=== PATIENT | male | born 1985 | race Caucasian/White ===

== ENCOUNTER 2018-07-25 11:56 | Emergency (ER) | payer OTHER ==
[~2018-07-25] VITALS: Ht 175.3 cm; Wt 79.4 kg
[2018-07-25] MEDS ORDERED: PROZAC10 MG PO (12:07)
[2018-07-25] MEDS ORDERED: DEPAKOTE 250MG250 M1 PO (12:07)
[2018-07-25] MEDS ORDERED: SEROQUEL 25 MG25 M1 PO (12:07)
[2018-07-25] MEDS ORDERED: AMITRIPTYLINE H10 M3 PO (12:07)
[2018-07-25] MEDS ORDERED: BIKTARVY 50-201 EACH PO (12:07)
[2018-07-25 12:49] LABS: INFLUENZA A ANTIGEN None Detected (None Detect); INFLUENZA B ANTIGEN None Detected (None Detect)
[2018-07-25] MEDS ORDERED: ACETAMINOPHEN-1 EAC1 PO (12:59)
[2018-07-25] MEDS ORDERED: ZPAK PO (12:59)
[2018-07-25] MEDS ORDERED: PROMETHAZINE V473 ML PO (13:04)
[2018-07-25 13:14] VITALS: BP 134/75
== END 2018-07-25 13:16 | disposition home or self-care (01) ==
LOC: M.ERS 11:56
PROVIDERS: Physician Assistant
DX: J20.9 Acute bronchitis, unspecified (principal); F17.210 Nicotine dependence, cigarettes, uncomplicated

== ENCOUNTER 2018-07-30 13:12 | Emergency (ER) | payer OTHER ==
[~2018-07-30] VITALS: Ht 175.3 cm; Wt 77.6 kg
[~2018-07-30 13:12] MED LIST: ACETAMINOPHEN-1 EAC1 PO; AMITRIPTYLINE H10 M3 PO; BIKTARVY 50-201 EACH PO; DEPAKOTE 250MG250 M1 PO; PROMETHAZINE V473 ML PO; PROZAC10 MG PO; SEROQUEL 25 MG25 M1 PO; ZPAK PO
[2018-07-30] MEDS ORDERED: PREDNISONE 20 M20 M1 PO (14:05)
[2018-07-30] MEDS ORDERED: TESSALON PERLE100 MG PO (14:06)
[2018-07-30 14:16] VITALS: BP 129/82
== END 2018-07-30 14:16 | disposition home or self-care (01) ==
LOC: M.ERS 13:12
DX: J20.9 Acute bronchitis, unspecified (principal); F17.210 Nicotine dependence, cigarettes, uncomplicated

== ENCOUNTER 2018-09-20 23:46 | Emergency (ER) | payer OTHER ==
[~2018-09-20] VITALS: Ht 175.3 cm; Wt 79.4 kg
[~2018-09-20 23:46] MED LIST changes: +PREDNISONE 20 M20 M1 PO; +TESSALON PERLE100 MG PO
[2018-09-21] MEDS ORDERED: SEROQUEL300 MG PO (00:02)
[2018-09-21] MEDS ORDERED: NORCO 5-325 TA1 EACH PO (00:26)
[2018-09-21] MEDS ORDERED: NABUMETONE 750750 M1 PO (00:26)
[2018-09-21 00:37] VITALS: BP 136/80
== END 2018-09-21 00:37 | disposition home or self-care (01) ==
LOC: M.ERS 23:46
DX: G89.29 Other chronic pain (principal); M54.5 Low back pain; F31.9 Bipolar disorder, unspecified; F41.9 Anxiety disorder, unspecified; M46.90 Unspecified inflammatory spondylopathy, site unspecified

== ENCOUNTER 2018-09-28 10:50 | Emergency (ER) | payer OTHER ==
[~2018-09-28] VITALS: Ht 175.3 cm; Wt 79.4 kg
[~2018-09-28 10:50] MED LIST changes: +NABUMETONE 750750 M1 PO; +NORCO 5-325 TA1 EACH PO; +SEROQUEL300 MG PO
[2018-09-28] MEDS ORDERED: NORCO 5-325 TA1 EACH PO (11:30)
[2018-09-28] MEDS ORDERED: FLEXERIL PO (11:30)
[2018-09-28 11:44] VITALS: BP 142/70
== END 2018-09-28 11:45 | disposition home or self-care (01) ==
LOC: M.ERS 10:50
DX: M54.5 Low back pain (principal); F31.9 Bipolar disorder, unspecified; F17.200 Nicotine dependence, unspecified, uncomplicated

== ENCOUNTER 2018-10-14 23:45 | Emergency (ER) | payer OTHER ==
[~2018-10-14] VITALS: Ht 175.3 cm; Wt 79.4 kg
[~2018-10-14 23:45] MED LIST changes: +FLEXERIL PO
[2018-10-15 01:25] VITALS: BP 118/76
== END 2018-10-15 01:25 | disposition home or self-care (01) ==
LOC: M.ERS 23:45
DX: S61.411A Laceration without foreign body of right hand, initial encounter (principal); F31.9 Bipolar disorder, unspecified; F41.9 Anxiety disorder, unspecified; M46.90 Unspecified inflammatory spondylopathy, site unspecified; F17.200 Nicotine dependence, unspecified, uncomplicated; W22.8XXA Striking against or struck by other objects, initial encounter; Y93.89 Activity, other specified; Y92.89 Other specified places as the place of occurrence of the external cause; Y99.8 Other external cause status